=== PATIENT | female | born 1985 | race Caucasian/White ===

== ENCOUNTER → 2017-01-18 | Outpatient (CLI) | payer OTHER ==
[~2017-01-18] MED LIST: FERROUS SULFAT325 M2 PO
== END ==
LOC: NM 01-11 10:30
DX: R10.11 Right upper quadrant pain (principal)
CPT/HCPCS: 78227; A9537; J2805

== ENCOUNTER → 2020-08-17 | Outpatient (CLI) | payer OTHER ==
[~2020-08-17] MED LIST changes: +ALIGN4 MG PO; +BENTYL 10MG CAP10 MG PO; +BUSPIRONE HCL15 MG PO; +DIAZEPAM VG; +DITROPAN 5 MG TA5 MG PO; +DOCUSATE SODIU250 MG PO; +FAMOTIDINE10 MG PO; +HYDROCODONE-AC1 EACH PO; +IBUPROFEN600 MG PO; +LEXAPRO20 MG PO
== END ==
LOC: SLEEP 13:49
DX: R29.818 Other symptoms and signs involving the nervous system (principal); D64.9 Anemia, unspecified; J30.9 Allergic rhinitis, unspecified; F41.9 Anxiety disorder, unspecified; K21.9 Gastro-esophageal reflux disease without esophagitis; K58.9 Irritable bowel syndrome, unspecified
CPT/HCPCS: 95810

== ENCOUNTER → 2021-02-07 | Outpatient (CLI) | payer OTHER ==
[2021-02-07 11:28] LABS: HEMOGLOBIN 12.7 gm/dl (12.3-15.3); RED BLOOD COUNT 4.87 M/UL (4.00-5.10)
== END ==
LOC: OPSV2 10:30
PROVIDERS: Obstetrics & Gynecology
DX: Z01.812 Encounter for preprocedural laboratory examination (principal); N93.9 Abnormal uterine and vaginal bleeding, unspecified
CPT/HCPCS: 36415; 81001; 85025

== ENCOUNTER → 2021-02-16 | Day surgery (SDC) | payer OTHER | END | disposition home or self-care (01) | LOC: OR 06:21 | DX: N72 Inflammatory disease of cervix uteri (principal); N92.0 Excessive and frequent menstruation with regular cycle; Z98.51 Tubal ligation status; Z88.6 Allergy status to analgesic agent; K58.9 Irritable bowel syndrome, unspecified; I82.819 Embolism and thrombosis of superficial veins of unspecified lower extremity; N94.89 Other specified conditions associated with female genital organs and menstrual cycle; N94.10 Unspecified dyspareunia; K21.9 Gastro-esophageal reflux disease without esophagitis; E66.01 Morbid (severe) obesity due to excess calories; F41.9 Anxiety disorder, unspecified | CPT/HCPCS: C1769; J0690; J1100; J1170; J2250; J2405; J2704; J3010; J7120 ==

== ENCOUNTER → 2021-10-17 | Outpatient (CLI) | payer BC | LOC: CT 12:01 | DX: R10.30 Lower abdominal pain, unspecified (principal); R19.7 Diarrhea, unspecified; I82.890 Acute embolism and thrombosis of other specified veins | CPT/HCPCS: Q9967 ==

== ENCOUNTER → 2021-11-07 | Outpatient (CLI) | payer BC | LOC: US 13:30 | DX: N64.4 Mastodynia (principal) | CPT/HCPCS: 76641 ==

== ENCOUNTER → 2021-11-15 | Outpatient (CLI) | payer BC | LOC: US 11-08 09:30 | DX: R10.13 Epigastric pain (principal); R11.0 Nausea; K76.0 Fatty (change of) liver, not elsewhere classified; D13.5 Benign neoplasm of extrahepatic bile ducts | CPT/HCPCS: 76705; 78227; A9537; J2805 ==